=== PATIENT | male | born 1975 | race African-American/Black ===

== ENCOUNTER 2017-10-11 11:47 | Inpatient (IN) | payer OTHER ==
[2017-10-11 13:04] VITALS: BMI 28.6
--- NOTE | 2017-10-11 17:13 | HP ---
CIWA Score - CIWA Score Nausea/Vomitin Muscle Tremors: 3 Anxiety: 3 Agitation: 3 Paroxysmal Sweats: 3 Orientation: 0-Oriented Tacttile Disturbances: 1-Very Mild Itch/Numbness Auditory Disturbances: 0-None Visual Disturbances: 0-None Headache: 1-Very Mild CIWA-Ar Total Score: 17 Admission [facility] Chief Complaint: alcohol withdrawal sx Allergies/Adverse Reactions: Allergies Allergy/AdvReac Type Severity Reaction Status Date / Time No Known Allergies Allergy Verified 10/11/17 13:51 History of Present Illness: 41 yo m with h/o chroninc alcoholism and cocaine dependnce first admission to [facility] for alcohol detox. reports alcohol withdrwal sx when he deos not drink. no h/o seiuzres no h/.o DTS. PMHx depression and anxiety, no si at this time. c/o thirst - Ebola screening Have you traveled outside of the country in the last 21 days: No (N) Have you had contact with anyone from an Ebola affected area: No Have you been sick,other than usual withdrawal symptoms: No Do you have a fever: No - Review of Systems Constitutional: Chills, Diaphoresis, Night Sweats, Changes in sleep, Unintentional Wgt. Loss EENT: reports: No Symptoms Reported Respiratory: reports: No Symptoms reported Cardiac: reports: No Symptoms Reported GI: reports: Diarrhea, Nausea, Poor Appetite, Poor Fluid Intake, Indigestion, Abdominal cramping : reports: No Symptoms Reported Musculoskeletal: reports: Neck Pain Neuro: reports: Headache, Numbness, Paresthesia, Tingling, Tremors, Weakness Endocrine: reports: Increased Thirst Hematology: reports: No Symptoms Reported Psychiatric: reports: Judgement Intact, Mood/Affect Appropiate, Orientated x3, Anxious, Depressed Other Systems: Reviewed and Negative Patient History - Patient Medical History Hx Anemia: No Hx Asthma: No Hx Chronic Obstructive Pulmonary Disease (COPD): No Hx Cancer: No Hx Cardiac Disorders: No Hx Congestive Heart Failure: No Hx Hypertension: No Hx Hypercholesterolemia: No Hx Pacemaker: No HX Cerebrovascular Accident: No Hx Seizures: No Hx Diabetes: No Hx Gastrointestinal Disorders: No Hx Liver Disease: No Hx Genitourinary Disorders: No Hx Sexually Transmitted Disorders: No Hx Renal Disease (ESRD): No Hx Thyroid Disease: No Hx Human Immunodeficiency Virus (HIV): No Hx Hepatitis C: No Hx Depression: Yes Hx Suicide Attempt: No Hx Bipolar Disorder: No Hx Schizophrenia: No - Patient Surgical History Past Surgical History: No Anesthesia Reaction: No - PPD History Previous Implant?: Yes Documented Results: Negative w/o proof Implanted On Prior R Admission?: No PPD to be Administered?: Yes - Reproductive History Patient is a Female of Child Bearing Age (11 -55 yrs old): No Patient : No - Smoking Cessation Smoking history: Current every day smoker Have you smoked in the past 12 months: Yes Aproximately how many cigarettes per day: 4 Hx Chewing Tobacco Use: No Initiated information on smoking cessation: Yes 'Breaking Loose' booklet given: 10/11/17 - Substance & Tx. History Hx Alcohol Use: Yes Hx Substance Use: Yes Substance Use Type: Alcohol, Cocaine Hx Substance Use Treatment: Yes (detox many years ago) - Substances Abused Alcohol Route: Oral Frequency: Daily Amount used: 2 40 OZ BEERS/ 2-3 PINTS AMY Age of first use: 17 Date of Last Use: 10/10/17 Cocaine Route: Inhalation Frequency: Daily Amount used: 2 GRAMS Age of first use: 27 Date of Last Use: 10/10/17 Family Disease History - Family Disease History Family Disease History: Heart Disease: Father (sciatica), Other: Father Admission Physical Exam S - Vital Signs Vital Signs: Vital Signs - 24 hr 10/11/17 12:55 Temperature 98.8 F Pulse Rate 96 H Respiratory 20 Rate Blood Pressure 124/69 - Physical General Appearance: Yes: Nourished, Appropriately Dressed, Disheveled, Mild Distress, Tremorous, Irritable, Sweating, Anxious HEENTM: Yes: EOMI, Hearing grossly Normal, Normal ENT Inspection, Normocephalic , Normal Voice, RENU, Pharynx Normal Respiratory: Yes: Within Normal Limits, Chest Non-Tender, Lungs Clear, Normal Breath Sounds, No Respiratory Distress, No Accessory Muscle Use Neck: Yes: Within Normal Limits, No masses,lesions,Nodules, Supple, Trachea in good position Breast: Yes: Breast Exam Deferred Cardiology: Yes: Within Normal Limits, Regular Rhythm, Regular Rate, S1, S2 Abdominal: Yes: Within Normal Limits, Normal Bowel Sounds, Non Tender, Flat, Soft Genitourinary: Yes: Within Normal Limits Back: Yes: Within Normal Limits, Normal Inspection Musculoskeletal: Yes: full range of Motion, Gait Steady, Pelvis Stable, Back pain, Muscle Pain (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) Extremities: Yes: Normal Capillary Refill, Normal Range of Motion, Tremors Neurological: Yes: vice president [employer] II-XII NML intact, Fully Oriented, Alert, Motor Strength 5/5, Normal Response, Depressed Affect Integumentary: Yes: Normal Color, Warm, Diaphoresis, Moist Lymphatic: Yes: Within Normal Limits - Addiitonal Findings: withdrawal sx - Diagnostic (1) Alcohol dependence with uncomplicated withdrawal Current Visit: Yes Status: Acute (2) Cocaine dependence Current Visit: Yes Status: Acute (3) Nicotine dependence Current Visit: Yes Status: Acute (4) Dehydration Current Visit: Yes Status: Acute (5) Depression Current Visit: Yes Status: Acute Cleared for Admission [facility] - Detox or Rehab [facility] Level of Care: Medically Managed Detox Regimen/Protocol: Librium S Breath Alcohol Content Breath Alcohol Content: 0 Urine Drug Screen - Results Drug Screen Negative: No Urine Drug Screen Results: CRISTINE-Cocaine
[2017-10-11] MEDS ORDERED: ACETAMINOPHEN 325 MG TABLET (FP) PO PRN (17:16)
[2017-10-11] MEDS ORDERED: LOPERAMIDE HCL 2 MG CAPSULE PO PRN (17:16)
[2017-10-11] MEDS ORDERED: hydrOXYzine PAMOATE 50 MG CAPSULE (FP) PO PRN (17:16)
[2017-10-11] MEDS ORDERED: guaiFENesin/D-METHORPHAN HB 10 ML UNIT-DOSE CUPS PO PRN (17:16)
[2017-10-11] MEDS ORDERED: MENTHOL/PHENOL 1 EACH UD MM PRN (17:16)
[2017-10-11] MEDS ORDERED: P-EPHED 60MG/TRIPROLIDI 2.5MG TABLET PO PRN (17:16)
[2017-10-11] MEDS ORDERED: MAG HYDROX/AL HYDROX/SIMETH 30 ML UNIT-DOSE CUP PO PRN (17:16)
[2017-10-11] MEDS ORDERED: MAGNESIUM HYDROX 2400MG/30ML ORAL SUSPENSION 30 ML CUP PO PRN (17:16)
[2017-10-11] MEDS ORDERED: chlordiazePOXIDE HCL 25 MG CAPSULE PO PRN (17:16)
[2017-10-11] MEDS ORDERED: NICOTINE POLACRILEX 2 MG GUM BUC PRN (17:16)
[2017-10-11] MEDS ORDERED: MAGNESIUM CITRATE 300 ML BOTTLE PO PRN (17:16)
[2017-10-11] MEDS ORDERED: chlordiazePOXIDE HCL 25 MG CAPSULE PO ONE (19:00)
[2017-10-11] MEDS: NICOTINE 7 MG/24 HOURS TOPICAL PATCH TD SCH (19:24)
[2017-10-11] MEDS: PANTOPRAZOLE 40 MG TABLET (FP) PO SCH (19:24)
[2017-10-11] MEDS: THIAMINE HCL 100 MG TABLET (FP) PO SCH (22:08)
[2017-10-11] MEDS: GABAPENTIN 100 MG CAPSULE (FP) PO SCH (22:09)
[2017-10-11] MEDS: chlordiazePOXIDE HCL 25 MG CAPSULE PO SCH (22:09)
[2017-10-11] MEDS: NAPROXEN 500 MG TABLET (FP) PO SCH (22:09)
[2017-10-11 23:35] LABS: URINE APPEARANCE CLEAR; URINE BILIRUBIN NEGATIVE (NEGATIVE); URINE BLOOD NEGATIVE (NEGATIVE); URINE COLOR DKYELLOW; URINE GLUCOSE (UA) NEGATIVE (NEGATIVE); URINE KETONE 2+ (NEGATIVE); URINE LEUK ESTERASE NEGATIVE (NEGATIVE); URINE NITRITE NEGATIVE (NEGATIVE)
[2017-10-11 23:38] LABS: URINE PROTEIN 1+ (NEGATIVE)
[2017-10-11 23:54] LABS: CALCIUM OXALATE CRYSTALS RARE /hpf (NONE SEEN); URINE MUCUS MANY
[2017-10-12] MEDS: chlordiazePOXIDE HCL 25 MG CAPSULE PO SCH ×4 (05:29→22:12)
[2017-10-12] MEDS: GABAPENTIN 100 MG CAPSULE (FP) PO SCH ×3 (05:29→22:12)
[2017-10-12 10:09] LABS: ALBUMIN 4.1 g/dl (3.4-5.0); ANION GAP 8 (8-16); BLOOD UREA NITROGEN 20 mg/dL (7-18); CALCIUM 8.8 mg/dL (8.5-10.1); CHLORIDE 103 mmol/L (98-107); CO2 28 mmol/L (21-32); CREATININE 1.2 mg/dL (0.7-1.3); GLUCOSE,RANDOM 83 mg/dL (74-106); POTASSIUM 3.8 mmol/L (3.5-5.1); SGOT/AST 110 U/L (15-37); SGPT/ALT 71 U/L (12-78); SODIUM 139 mmol/L (136-145)
[2017-10-12 10:10] LABS: ALK PHOS 51 U/L (45-117); BILIRUBIN,TOTAL 0.7 mg/dL (0.2-1.0); TOT PROT 7.2 g/dl (6.4-8.2)
[2017-10-12 10:15] LABS: HEMOGLOBIN 12.5 GM/dL (11.7-16.9); MCH 26.5 pg (25.7-33.7); MEAN CELL VOLUME 82.7 fl (80-96); MEAN PLT VOLUME 10.5 fl (7.5-11.1); PLATELET COUNT 145 K/MM3 (134-434); RBC 4.72 M/mm3 (4.00-5.60); RDW 14.5 % (11.9-15.9); WHITE BLOOD COUNT 7.8 K/mm3 (4.0-10.0)
[2017-10-12] MEDS: PRENATAL VITAMINS W/ FOLIC ACID TABLET (FP) PO SCH (10:38)
[2017-10-12] MEDS: NICOTINE 7 MG/24 HOURS TOPICAL PATCH TD SCH (10:38)
[2017-10-12] MEDS: PANTOPRAZOLE 40 MG TABLET (FP) PO SCH (10:38)
[2017-10-12] MEDS: NAPROXEN 500 MG TABLET (FP) PO SCH ×2 (10:38→22:12)
--- NOTE | 2017-10-12 11:31 | PN ---
[facility] CIWA - CIWA Score Nausea/Vomitin-No Nausea/No Vomiting Muscle Tremors: 4-Moderate,w/Arms Extend Anxiety: 4-Mod. Anxious/Guarded Agitation: 4-Moderately Restless Paroxysmal Sweats: 1-Minimal Palms Moist Orientation: 0-Oriented Tacttile Disturbances: 3-Moderate Itch/Numb/Burn Auditory Disturbances: 0-None Visual Disturbances: 0-None Headache: 0-None Present CIWA-Ar Total Score: 16 BHS Progress Note (SOAP) Subjective: ANXIETY, INTERMITTENT SLEEP. Objective: 10/12/17 11:30 Vital Signs Temperature 97.6 F 10/12/17 09:06 Pulse Rate 80 10/12/17 09:06 Respiratory Rate 18 10/12/17 09:06 Blood Pressure 121/76 10/12/17 09:06 O2 Sat by Pulse Oximetry (%) Laboratory Last Values WBC 7.8 K/mm3 (4.0-10.0) 10/12/17 06:00 RBC 4.72 M/mm3 (4.00-5.60) 10/12/17 06:00 Hgb 12.5 GM/dL (11.7-16.9) 10/12/17 06:00 Hct 39.0 % (35.4-49) 10/12/17 06:00 MCV 82.7 fl (80-96) 10/12/17 06:00 MCH 26.5 pg (25.7-33.7) 10/12/17 06:00 MCHC 32.0 g/dl (32.0-35.9) 10/12/17 06:00 RDW 14.5 % (11.9-15.9) 10/12/17 06:00 Plt Count 145 K/MM3 (134-434) 10/12/17 06:00 MPV 10.5 fl (7.5-11.1) 10/12/17 06:00 Sodium 139 mmol/L (136-145) 10/12/17 06:00 Potassium 3.8 mmol/L (3.5-5.1) 10/12/17 06:00 Chloride 103 mmol/L (98-107) 10/12/17 06:00 Carbon Dioxide 28 mmol/L (21-32) 10/12/17 06:00 Anion Gap 8 (8-16) 10/12/17 06:00 BUN 20 mg/dL (7-18) H 10/12/17 06:00 Creatinine 1.2 mg/dL (0.7-1.3) 10/12/17 06:00 Creat Clearance w eGFR > 60 (>60) 10/12/17 06:00 Random Glucose 83 mg/dL (74-106) 10/12/17 06:00 Calcium 8.8 mg/dL (8.5-10.1) 10/12/17 06:00 Total Bilirubin 0.7 mg/dL (0.2-1.0) 10/12/17 06:00 AST 110 U/L (15-37) H 10/12/17 06:00 ALT 71 U/L (12-78) 10/12/17 06:00 Alkaline Phosphatase 51 U/L (45-117) 10/12/17 06:00 Total Protein 7.2 g/dl (6.4-8.2) 10/12/17 06:00 Albumin 4.1 g/dl (3.4-5.0) 10/12/17 06:00 Urine Color Dkyellow 10/11/17 Unknown Urine Appearance Clear 10/11/17 Unknown Urine pH 5.0 (5.0-8.0) 10/11/17 Unknown Ur Specific [place] 1.035 (1.001-1.035) 10/11/17 Unknown Urine Protein 1+ (NEGATIVE) H 10/11/17 Unknown Urine Glucose (UA) Negative (NEGATIVE) 10/11/17 Unknown Urine Ketones 2+ (NEGATIVE) H 10/11/17 Unknown Urine Blood Negative (NEGATIVE) 10/11/17 Unknown Urine Nitrite Negative (NEGATIVE) 10/11/17 Unknown Urine Bilirubin Negative (NEGATIVE) 10/11/17 Unknown Urine Urobilinogen 2.0 mg/dL (0.2-1.0) 10/11/17 Unknown Ur Leukocyte Esterase Negative (NEGATIVE) 10/11/17 Unknown Urine WBC (Auto) 1 /hpf (3-5) 10/11/17 Unknown Urine RBC (Auto) 1 /hpf (0-3) 10/11/17 Unknown Calcium Oxalate Crystal Rare /hpf (NONE SEEN) 10/11/17 Unknown Urine Mucus Many 10/11/17 Unknown Assessment: 10/12/17 11:30 WITHDRAWAL SX Plan: CONTINUE DETOX
--- NOTE | 2017-10-12 11:51 | CONSULT ---
[facility] Psychiatric Consult - Data Date of interview: 10/12/17 Admission source: [facility] Identifying data: First admission to [facility] for this 41 y/o [place]-born male seeking detox treatment for alcohol and cocaine dependence.Patient is single without children,homeless,currently unemployed (trained as a plumber apprentice) and supported on food stamps. Substance Abuse History: Confirmed by patient in this interview.Details in current [facility] report : Smoking history: Current every day smoker. Have you smoked in the past 12 months: Yes. Aproximately how many cigarettes per day: 4. Hx Chewing Tobacco Use: No. Initiated information on smoking cessation: Yes. 'Breaking Loose' booklet given: 10/11/17. - Substance & Tx. History. Hx Alcohol Use: Yes. Hx Substance Use: Yes. Substance Use Type: Alcohol, Cocaine. Hx Substance Use Treatment: Yes (detox many years ago). - Substances Abused. Alcohol. Route: Oral. Frequency: Daily. Amount used: 2 40 OZ BEERS/ 2-3 PINTS AMY. Age of first use: 17. Date of Last Use: 10/10/17. Cocaine. Route: Inhalation. Frequency: Daily. Amount used: 2 GRAMS. Age of first use: 27. Date of Last Use: 10/10/17 Medical History: Patient endorses good general health. Psychiatric History: No reported history of psychiatric hospitalizations.Mr Broderick admits to previous outpatient psychiatric care at [facility] to address depression and anxiety (used to be prescribed paroxetine,fluoxetine and mirtazapine).Lost to follow up since 2015 (off medications).Patient denies history of suicide attempts. Physical/Sexual Abuse/Trauma History: No history of abuse.Traumatized by the of his father (2015) and his recent incarceration (18 months) at [facility].Current stressors : homelessness,separation from relatives,absence of a support network,financial difficulties,unemployment and addictions. Additional Comment: Urine Drug Screen Results: CRISTINE-Cocaine.Noted. Mental Status Exam - Mental Status Exam Alert and Oriented to: Time, Place, Person Cognitive Function: Good Patient Appearance: Well Groomed Mood: Withdrawn, Anxious, Hopeful Affect: Appropriate, Normal Range Patient Behavior: Fatigued, Appropriate, Cooperative Speech Pattern: Clear, Appropriate Voice Loudness: Normal Thought Process: Intact, Goal Oriented Thought Disorder: Not Present Hallucinations: Denies Suicidal Ideation: Denies Homicidal Ideation: Denies Insight/Judgement: Fair Sleep: Fair Appetite: Good Muscle strength/Tone: Normal Gait/Station: Normal Psychiatric Findings - Problem List ([place] 1, 2,3) (1) Alcohol dependence with uncomplicated withdrawal Current Visit: Yes Status: Acute (2) Cocaine dependence Current Visit: Yes Status: Acute Qualifiers: Substance use status: uncomplicated Qualified Code(s): F14.20 - Cocaine dependence, uncomplicated (3) Nicotine dependence Current Visit: Yes Status: Acute Qualifiers: Nicotine product type: cigarettes Substance use status: in withdrawal Qualified Code(s): F17.213 - Nicotine dependence, cigarettes, with withdrawal (4) Substance induced mood disorder Current Visit: Yes Status: Acute - Initial Treatment Plan Initial Treatment Plan: Psychoeducation and support provided in session.Detoxification in progress.Patient declines to resume antidepressant medications.Daily monitoring of hospital course.
--- NOTE | 2017-10-12 14:09 | EKG ---
Test Reason : Blood Pressure : / mmHG Vent. Rate : 091 BPM Atrial Rate : 091 BPM P-R Int : 152 ms QRS Dur : 082 ms QT Int : 364 ms P-R-T Axes : 070 077 062 degrees QTc Int : 447 ms NORMAL SINUS RHYTHM NORMAL ECG NO PREVIOUS ECGS AVAILABLE Confirmed by MD Colton, Jem ([id number]) on 10/12/2017 2:09:21 PM Referred By: Confirmed By:Jem Segura MD
[2017-10-12] MEDS: THIAMINE HCL 100 MG TABLET (FP) PO SCH (22:12)
[2017-10-13] MEDS: chlordiazePOXIDE HCL 25 MG CAPSULE PO SCH ×3 (05:55→17:20)
[2017-10-13] MEDS: GABAPENTIN 100 MG CAPSULE (FP) PO SCH ×3 (05:55→22:33)
[2017-10-13] MEDS: PANTOPRAZOLE 40 MG TABLET (FP) PO SCH (10:16)
[2017-10-13] MEDS: NICOTINE 7 MG/24 HOURS TOPICAL PATCH TD SCH (10:16)
[2017-10-13] MEDS: NAPROXEN 500 MG TABLET (FP) PO SCH ×2 (10:16→22:33)
[2017-10-13] MEDS: PRENATAL VITAMINS W/ FOLIC ACID TABLET (FP) PO SCH (10:16)
--- NOTE | 2017-10-13 10:52 | PN ---
[facility] CIWA - CIWA Score Nausea/Vomitin-No Nausea/No Vomiting Muscle Tremors: 4-Moderate,w/Arms Extend Anxiety: 4-Mod. Anxious/Guarded Agitation: 4-Moderately Restless Paroxysmal Sweats: 1-Minimal Palms Moist Orientation: 0-Oriented Tacttile Disturbances: 3-Moderate Itch/Numb/Burn Auditory Disturbances: 0-None Visual Disturbances: 0-None Headache: 0-None Present CIWA-Ar Total Score: 16 BHS Progress Note (SOAP) Subjective: ANXIETY,SWEATS,TREMORS. Objective: 10/13/17 10:51 Vital Signs Temperature 97.3 F L 10/13/17 09:06 Pulse Rate 85 10/13/17 09:06 Respiratory Rate 18 10/13/17 09:06 Blood Pressure 107/71 10/13/17 09:06 O2 Sat by Pulse Oximetry (%) Laboratory Last Values WBC 7.8 K/mm3 (4.0-10.0) 10/12/17 06:00 RBC 4.72 M/mm3 (4.00-5.60) 10/12/17 06:00 Hgb 12.5 GM/dL (11.7-16.9) 10/12/17 06:00 Hct 39.0 % (35.4-49) 10/12/17 06:00 MCV 82.7 fl (80-96) 10/12/17 06:00 MCH 26.5 pg (25.7-33.7) 10/12/17 06:00 MCHC 32.0 g/dl (32.0-35.9) 10/12/17 06:00 RDW 14.5 % (11.9-15.9) 10/12/17 06:00 Plt Count 145 K/MM3 (134-434) 10/12/17 06:00 MPV 10.5 fl (7.5-11.1) 10/12/17 06:00 Sodium 139 mmol/L (136-145) 10/12/17 06:00 Potassium 3.8 mmol/L (3.5-5.1) 10/12/17 06:00 Chloride 103 mmol/L (98-107) 10/12/17 06:00 Carbon Dioxide 28 mmol/L (21-32) 10/12/17 06:00 Anion Gap 8 (8-16) 10/12/17 06:00 BUN 20 mg/dL (7-18) H 10/12/17 06:00 Creatinine 1.2 mg/dL (0.7-1.3) 10/12/17 06:00 Creat Clearance w eGFR > 60 (>60) 10/12/17 06:00 Random Glucose 83 mg/dL (74-106) 10/12/17 06:00 Calcium 8.8 mg/dL (8.5-10.1) 10/12/17 06:00 Total Bilirubin 0.7 mg/dL (0.2-1.0) 10/12/17 06:00 AST 110 U/L (15-37) H 10/12/17 06:00 ALT 71 U/L (12-78) 10/12/17 06:00 Alkaline Phosphatase 51 U/L (45-117) 10/12/17 06:00 Total Protein 7.2 g/dl (6.4-8.2) 10/12/17 06:00 Albumin 4.1 g/dl (3.4-5.0) 10/12/17 06:00 Urine Color Dkyellow 10/11/17 Unknown Urine Appearance Clear 10/11/17 Unknown Urine pH 5.0 (5.0-8.0) 10/11/17 Unknown Ur Specific [place] 1.035 (1.001-1.035) 10/11/17 Unknown Urine Protein 1+ (NEGATIVE) H 10/11/17 Unknown Urine Glucose (UA) Negative (NEGATIVE) 10/11/17 Unknown Urine Ketones 2+ (NEGATIVE) H 10/11/17 Unknown Urine Blood Negative (NEGATIVE) 10/11/17 Unknown Urine Nitrite Negative (NEGATIVE) 10/11/17 Unknown Urine Bilirubin Negative (NEGATIVE) 10/11/17 Unknown Urine Urobilinogen 2.0 mg/dL (0.2-1.0) 10/11/17 Unknown Ur Leukocyte Esterase Negative (NEGATIVE) 10/11/17 Unknown Urine WBC (Auto) 1 /hpf (3-5) 10/11/17 Unknown Urine RBC (Auto) 1 /hpf (0-3) 10/11/17 Unknown Calcium Oxalate Crystal Rare /hpf (NONE SEEN) 10/11/17 Unknown Urine Mucus Many 10/11/17 Unknown RPR Titer Nonreactive (NONREACTIVE) 10/12/17 06:00 Hepatitis C Antibody 0.3 s/co ratio (0.0-0.9) 10/11/17 06:00 HIV 1&2 Antibody Screen Negative 10/12/17 06:00 HIV P24 Antigen Negative 10/12/17 06:00 Assessment: 10/13/17 10:51 WITHDRAWAL SX Plan: CONTINUE DETOX
[2017-10-13] MEDS: THIAMINE HCL 100 MG TABLET (FP) PO SCH (22:33)
[2017-10-13] MEDS: chlordiazePOXIDE 5 MG CAPSULE PO SCH (22:33)
[2017-10-14] MEDS: chlordiazePOXIDE 5 MG CAPSULE PO SCH ×2 (05:36→10:34)
[2017-10-14] MEDS: GABAPENTIN 100 MG CAPSULE (FP) PO SCH ×3 (05:36→22:11)
[2017-10-14] MEDS: PANTOPRAZOLE 40 MG TABLET (FP) PO SCH (10:33)
[2017-10-14] MEDS: PRENATAL VITAMINS W/ FOLIC ACID TABLET (FP) PO SCH (10:33)
[2017-10-14] MEDS: NAPROXEN 500 MG TABLET (FP) PO SCH ×2 (10:33→22:11)
[2017-10-14] MEDS: NICOTINE 7 MG/24 HOURS TOPICAL PATCH TD SCH (10:34)
[2017-10-14 11:48] LABS: SICKLE CELL SCREEN NEGATIVE (NEGATIVE)
--- NOTE | 2017-10-14 12:21 | PN ---
BHS Progress Note (SOAP) Subjective: PT IS VERY DROWSY BUT AROUSABLE. ORIENTED X 3. LIBRIUM 15 MG PO HELD AT 10 AM TODAY. Objective: 10/14/17 12:19 Vital Signs Temperature 97.7 F 10/14/17 09:41 Pulse Rate 87 10/14/17 09:41 Respiratory Rate 18 10/14/17 09:41 Blood Pressure 108/66 10/14/17 09:41 O2 Sat by Pulse Oximetry (%) Laboratory Last Values WBC 7.8 K/mm3 (4.0-10.0) 10/12/17 06:00 RBC 4.72 M/mm3 (4.00-5.60) 10/12/17 06:00 Hgb 12.5 GM/dL (11.7-16.9) 10/12/17 06:00 Hct 39.0 % (35.4-49) 10/12/17 06:00 MCV 82.7 fl (80-96) 10/12/17 06:00 MCH 26.5 pg (25.7-33.7) 10/12/17 06:00 MCHC 32.0 g/dl (32.0-35.9) 10/12/17 06:00 RDW 14.5 % (11.9-15.9) 10/12/17 06:00 Plt Count 145 K/MM3 (134-434) 10/12/17 06:00 MPV 10.5 fl (7.5-11.1) 10/12/17 06:00 Sickle Cell Screen Negative (NEGATIVE) 10/12/17 06:00 Sodium 139 mmol/L (136-145) 10/12/17 06:00 Potassium 3.8 mmol/L (3.5-5.1) 10/12/17 06:00 Chloride 103 mmol/L (98-107) 10/12/17 06:00 Carbon Dioxide 28 mmol/L (21-32) 10/12/17 06:00 Anion Gap 8 (8-16) 10/12/17 06:00 BUN 20 mg/dL (7-18) H 10/12/17 06:00 Creatinine 1.2 mg/dL (0.7-1.3) 10/12/17 06:00 Creat Clearance w eGFR > 60 (>60) 10/12/17 06:00 Random Glucose 83 mg/dL (74-106) 10/12/17 06:00 Calcium 8.8 mg/dL (8.5-10.1) 10/12/17 06:00 Total Bilirubin 0.7 mg/dL (0.2-1.0) 10/12/17 06:00 AST 110 U/L (15-37) H 10/12/17 06:00 ALT 71 U/L (12-78) 10/12/17 06:00 Alkaline Phosphatase 51 U/L (45-117) 10/12/17 06:00 Total Protein 7.2 g/dl (6.4-8.2) 10/12/17 06:00 Albumin 4.1 g/dl (3.4-5.0) 10/12/17 06:00 Urine Color Dkyellow 10/11/17 Unknown Urine Appearance Clear 10/11/17 Unknown Urine pH 5.0 (5.0-8.0) 10/11/17 Unknown Ur Specific [place] 1.035 (1.001-1.035) 10/11/17 Unknown Urine Protein 1+ (NEGATIVE) H 10/11/17 Unknown Urine Glucose (UA) Negative (NEGATIVE) 10/11/17 Unknown Urine Ketones 2+ (NEGATIVE) H 10/11/17 Unknown Urine Blood Negative (NEGATIVE) 10/11/17 Unknown Urine Nitrite Negative (NEGATIVE) 10/11/17 Unknown Urine Bilirubin Negative (NEGATIVE) 10/11/17 Unknown Urine Urobilinogen 2.0 mg/dL (0.2-1.0) 10/11/17 Unknown Ur Leukocyte Esterase Negative (NEGATIVE) 10/11/17 Unknown Urine WBC (Auto) 1 /hpf (3-5) 10/11/17 Unknown Urine RBC (Auto) 1 /hpf (0-3) 10/11/17 Unknown Calcium Oxalate Crystal Rare /hpf (NONE SEEN) 10/11/17 Unknown Urine Mucus Many 10/11/17 Unknown RPR Titer Nonreactive (NONREACTIVE) 10/12/17 06:00 Hepatitis C Antibody 0.3 s/co ratio (0.0-0.9) 10/11/17 06:00 HIV 1&2 Antibody Screen Negative 10/12/17 06:00 HIV P24 Antigen Negative 10/12/17 06:00 Assessment: 10/14/17 12:19 WITHDRAWAL SX Plan: CONTINUE DETOX INCREASE PO FLUIDS D/C LIBRIUM 15 MG PO AT 5 PM TODAY. RESUME LIBRIUM 10 MG PO AT 12 AM. MONITOR PT STATUS.
[2017-10-14] MEDS: chlordiazePOXIDE HCL 10 MG CAPSULE PO SCH (22:11)
[2017-10-14] MEDS: THIAMINE HCL 100 MG TABLET (FP) PO SCH (22:11)
[2017-10-15] MEDS: chlordiazePOXIDE HCL 10 MG CAPSULE PO SCH (06:11)
[2017-10-15] MEDS: GABAPENTIN 100 MG CAPSULE (FP) PO SCH (06:11)
[2017-10-15 06:19] VITALS: BP 102/62; PULSE 86; TEMP 97
--- NOTE | 2017-10-15 15:34 | DS ---
[facility] Detox Discharge Summary Admission Date: 10/11/17 Discharge Date: 10/15/17 - History Present History: Alcohol Dependence, Cocaine Dependence Additional Comments: ALERT O X 3. NAD. PT COMPLETED DETOX. REPORTS PRIMARY CARE AT [facility]. Pertinent Past History: HX SCIATICA - Physical Exam Results Vital Signs: Vital Signs Temperature 97.0 F L 10/15/17 06:18 Pulse Rate 86 10/15/17 06:18 Respiratory Rate 18 10/15/17 06:18 Blood Pressure 102/62 10/15/17 06:18 O2 Sat by Pulse Oximetry (%) Pertinent Admission Physical Exam Findings: WITHDRAWAL SX Laboratory Last Values WBC 7.8 K/mm3 (4.0-10.0) 10/12/17 06:00 RBC 4.72 M/mm3 (4.00-5.60) 10/12/17 06:00 Hgb 12.5 GM/dL (11.7-16.9) 10/12/17 06:00 Hct 39.0 % (35.4-49) 10/12/17 06:00 MCV 82.7 fl (80-96) 10/12/17 06:00 MCH 26.5 pg (25.7-33.7) 10/12/17 06:00 MCHC 32.0 g/dl (32.0-35.9) 10/12/17 06:00 RDW 14.5 % (11.9-15.9) 10/12/17 06:00 Plt Count 145 K/MM3 (134-434) 10/12/17 06:00 MPV 10.5 fl (7.5-11.1) 10/12/17 06:00 Sickle Cell Screen Negative (NEGATIVE) 10/12/17 06:00 Sodium 139 mmol/L (136-145) 10/12/17 06:00 Potassium 3.8 mmol/L (3.5-5.1) 10/12/17 06:00 Chloride 103 mmol/L (98-107) 10/12/17 06:00 Carbon Dioxide 28 mmol/L (21-32) 10/12/17 06:00 Anion Gap 8 (8-16) 10/12/17 06:00 BUN 20 mg/dL (7-18) H 10/12/17 06:00 Creatinine 1.2 mg/dL (0.7-1.3) 10/12/17 06:00 Creat Clearance w eGFR > 60 (>60) 10/12/17 06:00 Random Glucose 83 mg/dL (74-106) 10/12/17 06:00 Calcium 8.8 mg/dL (8.5-10.1) 10/12/17 06:00 Total Bilirubin 0.7 mg/dL (0.2-1.0) 10/12/17 06:00 AST 110 U/L (15-37) H 10/12/17 06:00 ALT 71 U/L (12-78) 10/12/17 06:00 Alkaline Phosphatase 51 U/L (45-117) 10/12/17 06:00 Total Protein 7.2 g/dl (6.4-8.2) 10/12/17 06:00 Albumin 4.1 g/dl (3.4-5.0) 10/12/17 06:00 Urine Color Dkyellow 10/11/17 Unknown Urine Appearance Clear 10/11/17 Unknown Urine pH 5.0 (5.0-8.0) 10/11/17 Unknown Ur Specific [place] 1.035 (1.001-1.035) 10/11/17 Unknown Urine Protein 1+ (NEGATIVE) H 10/11/17 Unknown Urine Glucose (UA) Negative (NEGATIVE) 10/11/17 Unknown Urine Ketones 2+ (NEGATIVE) H 10/11/17 Unknown Urine Blood Negative (NEGATIVE) 10/11/17 Unknown Urine Nitrite Negative (NEGATIVE) 10/11/17 Unknown Urine Bilirubin Negative (NEGATIVE) 10/11/17 Unknown Urine Urobilinogen 2.0 mg/dL (0.2-1.0) 10/11/17 Unknown Ur Leukocyte Esterase Negative (NEGATIVE) 10/11/17 Unknown Urine WBC (Auto) 1 /hpf (3-5) 10/11/17 Unknown Urine RBC (Auto) 1 /hpf (0-3) 10/11/17 Unknown Calcium Oxalate Crystal Rare /hpf (NONE SEEN) 10/11/17 Unknown Urine Mucus Many 10/11/17 Unknown RPR Titer Nonreactive (NONREACTIVE) 10/12/17 06:00 Hepatitis C Antibody 0.3 s/co ratio (0.0-0.9) 10/11/17 06:00 HIV 1&2 Antibody Screen Negative 10/12/17 06:00 HIV P24 Antigen Negative 10/12/17 06:00 - Treatment Hospital Course: Detox Protocol Followed, Detoxed Safely, Responded well, Discharged Condition Good - Medication Discharge Medications: Ambulatory Orders NK [No Known Home Medication] 10/11/17 - Diagnosis (1) Alcohol dependence with uncomplicated withdrawal Status: Acute (2) Cocaine dependence Status: Acute Qualifiers: Substance use status: uncomplicated Qualified Code(s): F14.20 - Cocaine dependence, uncomplicated (3) Dehydration Status: Acute (4) Nicotine dependence Status: Acute Qualifiers: Nicotine product type: cigarettes Substance use status: in withdrawal Qualified Code(s): F17.213 - Nicotine dependence, cigarettes, with withdrawal (5) Sciatica Status: Acute Qualifiers: Laterality: unspecified laterality Qualified Code(s): M54.30 - Sciatica, unspecified side - AMA Did Patient Leave Against Medical Advice: No
== END 2017-10-15 10:48 | disposition home or self-care (01) | DRG 774 ==
LOC: YASAS 11:47 → Y3N 18:45
PROVIDERS: ADMIT Internal Medicine; ATTEND Internal Medicine
PROC: HZ2ZZZZ Detoxification Services for Substance Abuse Treatment (ICD-10-PCS; principal; 2017-10-11)
DX: F10.230 Alcohol dependence with withdrawal, uncomplicated (principal); F14.20 Cocaine dependence, uncomplicated; F17.213 Nicotine dependence, cigarettes, with withdrawal; F19.24 Other psychoactive substance dependence with psychoactive substance-induced mood disorder; F41.9 Anxiety disorder, unspecified; F32.9 Major depressive disorder, single episode, unspecified; M54.30 Sciatica, unspecified side; E86.0 Dehydration; Z59.0 Homelessness
CPT/HCPCS: 36415; 80053; 81003; 81015; 85027; 85660; 86593; 86803; 87389; 93005; 93010